=== PATIENT | female | born 1995 | race African-American/Black ===

== ENCOUNTER 2021-12-03 14:42 | Emergency (ER) | payer MEDICAID ==
[~2021-12-03] VITALS: Ht 157.5 cm; Wt 79.0 kg
[2021-12-03 15:30] VITALS: BP 132/84
[2021-12-03] MEDS ORDERED: KETOROLAC 30MG/ML VIAL IM ONE (15:30)
[2021-12-03] MEDS ORDERED: ALBU6.7H15 INH (16:19)
[2021-12-03] MEDS ORDERED: IBUP-2029 MT (16:19)
== END 2021-12-03 16:46 | disposition home or self-care (01) ==
LOC: ER 14:42
DX: R07.89 Other chest pain (principal); R03.0 Elevated blood-pressure reading, without diagnosis of hypertension; Z87.828 Personal history of other (healed) physical injury and trauma; J45.909 Unspecified asthma, uncomplicated
CPT/HCPCS: 71045; 81025; 93005; 96372; 99283; J1885